=== PATIENT | male | born 1985 | race Caucasian/White ===

== ENCOUNTER → 2019-12-10 | Outpatient (CLI) | payer OTHER ==
--- NOTE | 2019-12-10 13:04 | RADIOLOGY REPORT (SQ) ---
EXAM DESCRIPTION: MRI LUMBAR SPINE WITHOUT COMPLETED DATE/TIME: 12/10/2019 9:43 am REASON FOR STUDY: BACK PAIN COMPARISON: None. TECHNIQUE: Sagittal and Axial imaging includes T1, T2, STIR and gradient echo sequences. Coronal T2/ HASTE imaging. LIMITATIONS: None. FINDINGS: VISUALIZED UPPER ABDOMEN: Limited evaluation. No acute or suspicious findings suggested. SEGMENTATION: No transitional anatomy. The lowest well-developed disc space is labeled L5-S1. ALIGNMENT: Anatomic. VERTEBRAE: Intact. BONE MARROW: Normal. No marrow replacement or reactive changes. DISC SIGNAL: Desiccation L5-S1. POSTERIOR ELEMENTS: Generally intact. No pars defect evident. HARDWARE: None in the spine. CORD AND CONUS: Normal in size and signal intensity. Conus at the appropriate level. SOFT TISSUES: No aortic aneurysm seen. No bulky retroperitoneal adenopathy or mass. No paraspinal mas s or fluid. L1-L2: No significant spinal stenosis or exit foraminal stenosis. L2-L3: No significant spinal stenosis or exit foraminal stenosis. L3-L4: No significant spinal stenosis or exit foraminal stenosis. L4-L5: No significant spinal stenosis or exit foraminal stenosis. L5-S1: Mild spinal stenosis associated with broad-based central disc protrusion. There is contact wi th the transiting S1 nerve root in the canal. LOWER THORACIC: Incompletely imaged. No stenosis seen. SACRUM: Visualized upper sacrum intact. OTHER: No other significant findings. IMPRESSION: Herniated disc L5-S1. There is contact with the transiting S1 nerve roots in the canal. TECHNICAL DOCUMENTATION: JOB ID: [id number] [employer]- All Rights Reserved Reading location - IP/workstation name: [email or web address]
== END ==
LOC: RAD 09:07
PROVIDERS: ATTEND Family Medicine
DX: M54.9 Dorsalgia, unspecified (principal)
CPT/HCPCS: 72148